=== PATIENT | male | born 1995 | race Caucasian/White ===

== ENCOUNTER 2018-09-13 00:14 | Emergency (ER) | payer BC, OTHER ==
[2018-09-13 00:59] VITALS: BP 136/84; PULSE 118; TEMP 98.3; BMI 25.4
--- NOTE | 2018-09-13 03:02 | PDOC ---
Attending Attestation - Resident Resident Name: Theresa Lawson - ED Attending Attestation I have performed the following: I have examined & evaluated the patient, The case was reviewed & discussed with the resident, I agree w/resident's findings & plan - HPI HPI: 09/13/18 03:53 23-year-old male with palpitations after staying up all night and playing on the computer - Physicial Exam PE: 09/13/18 03:55 agree with resident exam - Medical Decision Making 09/13/18 03:56 23-year-old male with palpitations and anxiety Plan for labs EKG shows a sinus tachycardia with no acute ST elevations Patient will likely be discharged home
[2018-09-13 04:30] LABS: BASO % 0.4 % (0-2.0); EOS % 0.1 % (0-4.5); HEMATOCRIT 43.6 % (35.4-49); HEMOGLOBIN 14.7 GM/dL (11.7-16.9); LYMPH % 18.6 % (8-40); MCHC 33.7 g/dl (32.0-35.9); MEAN PLT VOLUME 9.2 fl (7.5-11.1); MONO % 7.4 % (3.8-10.2); NEUT % 73.5 % (42.8-82.8); PLATELET COUNT 189 K/MM3 (134-434); RDW 13.8 % (11.9-15.9); WHITE BLOOD COUNT 10.6 K/mm3 (4.0-10.0)
[2018-09-13 04:54] LABS: ALBUMIN 4.6 g/dl (3.4-5.0); BLOOD UREA NITROGEN 7.7 mg/dL (7-18); CALCIUM 9.2 mg/dL (8.5-10.1); POTASSIUM 3.4 mmol/L (3.5-5.1); TOT PROT 7.9 g/dl (6.4-8.2)
[2018-09-13 05:12] LABS: URINE APPEARANCE CLEAR; URINE BILIRUBIN NEGATIVE (NEGATIVE); URINE COLOR YELLOW; URINE GLUCOSE (UA) NEGATIVE (NEGATIVE); URINE KETONE 1+ (NEGATIVE); URINE LEUK ESTERASE NEGATIVE (NEGATIVE); URINE NITRITE NEGATIVE (NEGATIVE); URINE PROTEIN NEGATIVE (NEGATIVE); URINE UROBILINOGEN 0.2 mg/dL (0.2-1.0)
[2018-09-13 05:28] LABS: COCAINE, UR NEGATIVE ng/ml (CUTOFF=300); METHADONE, UR NEGATIVE ng/ml (CUTOFF=300); OPIATES, URI NEGATIVE ng/ml (CUTOFF=300); PHENCYCLIDINE,URINE NEGATIVE ng/ml (CUTOFF=25); URINE AMPHETAMINES NEGATIVE ng/ml (CUTOFF=500); URINE BARBITURATES NEGATIVE ng/ml (CUTOFF=200); URINE BENZODIAZEPINES NEGATIVE ng/ml (CUTOFF=200)
--- NOTE | 2018-09-13 05:51 | PDOC ---
History of Present Illness - General Chief Complaint: Palpitations Stated Complaint: RAPID HEARTBEAT Time Seen by Provider: 09/13/18 03:02 - History of Present Illness Initial Comments: James Stevens is an otherwise healthy 23yo man who presents with the sensation that his heart is racing. He says that he was up all night last night, and he noticed the feeling around 7:30am. He is generally awake all night playing on the computer, but he was unable to sleep well throughout the day because of the racing heart. He checked his heart rate using his father's BP machine and it was about 115-120. He tried to ignore the feeling, but it continued all day and he was again unable to sleep. He was concerned that something was wrong with his heart, so he presented for evaluation. He denies any caffeine intake, drug use, alcohol use or previous medical problems. There is no known family cardiac history. He denies any recent weight loss, fever, thirst, infectious symptoms, difficulty breathing, chest pain, vomiting, diarrhea or any other recent symptoms. He does report that he only sleeps about 6 hours per night. Past History - Past Medical History Allergies/Adverse Reactions: Allergies Allergy/AdvReac Type Severity Reaction Status Date / Time No Known Allergies Allergy Verified 09/13/18 00:59 COPD: No - Suicide/Smoking/Psychosocial Hx Smoking History: Never smoked Have you smoked in the past 12 months: No Information on smoking cessation initiated: No Hx Alcohol Use: No Drug/Substance Use Hx: No Review of Systems - Review of Systems Comments:: General: No fevers, no chills, no weight or appetite change, no malaise HEENT: No changes in vision, no changes in hearing, no congestion, no sore throat CV: See HPI. No chest pain, no LE edema Pulm: No SOB, no cough, no wheezing GI: No nausea or vomiting, no change in bowel habits, no melena : No frequency, no urgency, no dysuria Musc: No back pain, no joint swelling, no recent injury Skin: No rash, no lesions, no erythema Endo: No excessive thirst, no heat/cold intolerance Heme: No unusual bruising or bleeding, no swollen glands Neuro: No syncope, no numbness/tingling, no focal weakness Vasc: No claudication Psych: No recent change in mood, no SI or HI *Physical Exam - Vital Signs Last Vital Signs Temp Pulse Resp BP Pulse Ox 98.3 F 118 H 18 136/84 99 09/13/18 00:14 09/13/18 00:14 09/13/18 00:14 09/13/18 00:14 09/13/18 00:14 - Physical Exam Comments: General: Comfortable, no acute distress HEENT: PERRL, EOMI, MMM, voice normal Cards: RRR, no murmur appreciated Pulm: Comfortable on room air, clear to auscultation bilaterally Abd: Soft, nontender, nondistended Ext: Atraumatic. No LE edema. ROM intact Vasc: Extremities WWP. Skin: Normal color, no rashes or lesions Neuro: A&Ox3, CN grossly intact, normal speech, motor/sensory grossly intact and symmetric Psych: Mood appropriate to situation ED Treatment Course - LABORATORY CBC & Chemistry Diagram: 09/13/18 04:08 09/13/18 04:08 - ADDITIONAL ORDERS Additional order review: Laboratory Results 09/13/18 09/13/18 09/13/18 05:00 05:00 04:08 Sodium 140 Potassium 3.4 L Chloride 104 Carbon Dioxide 27 Anion Gap 10 BUN 7.7 Creatinine 1.0 Est GFR (CKD-EPI)AfAm 121.55 Est GFR (CKD-EPI)NonAf 104.88 Random Glucose 91 Calcium 9.2 Total Bilirubin 1.0 AST 18 ALT 37 Alkaline Phosphatase 82 Creatine Kinase Troponin I Total Protein 7.9 Albumin 4.6 TSH Urine Color Yellow Urine Appearance Clear Urine pH 6.0 Ur Specific [place] 1.022 Urine Protein Negative Urine Glucose (UA) Negative Urine Ketones 1+ H Urine Blood Negative Urine Nitrite Negative Urine Bilirubin Negative Urine Urobilinogen 0.2 Ur Leukocyte Esterase Negative Opiates Screen Negative Methadone Screen Negative Barbiturate Screen Negative Phencyclidine Screen Negative Ur Amphetamines Screen Negative MDMA (Ecstasy) Screen Negative Benzodiazepines Screen Negative Cocaine Screen Negative U Marijuana (THC) Screen Negative 09/13/18 09/13/18 04:08 04:06 Sodium Potassium Chloride Carbon Dioxide Anion Gap BUN Creatinine Est GFR (CKD-EPI)AfAm Est GFR (CKD-EPI)NonAf Random Glucose Calcium Total Bilirubin AST ALT Alkaline Phosphatase Creatine Kinase 129 Troponin I < 0.02 Total Protein Albumin TSH 1.35 Urine Color Urine Appearance Urine pH Ur Specific [place] Urine Protein Urine Glucose (UA) Urine Ketones Urine Blood Urine Nitrite Urine Bilirubin Urine Urobilinogen Ur Leukocyte Esterase Opiates Screen Methadone Screen Barbiturate Screen Phencyclidine Screen Ur Amphetamines Screen MDMA (Ecstasy) Screen Benzodiazepines Screen Cocaine Screen U Marijuana (THC) Screen 09/13/18 04:08 RBC 4.90 MCV 89.0 MCHC 33.7 RDW 13.8 MPV 9.2 Neutrophils % 73.5 Lymphocytes % 18.6 Monocytes % 7.4 Eosinophils % 0.1 Basophils % 0.4 - RADIOLOGY Radiology Studies Ordered: Category Date Time Status CHEST PA & LAT [RAD] Stat Radiology 09/13/18 03:36 Taken Medical Decision Making - Medical Decision Making 09/13/18 03:45 James Stevens is an otherwise healthy 23yo man who presents with the sensation that his heart is racing since 7:30am. He denies any associated symptoms and also denies any history of cardiac problems, caffeine or drug use, or family history. - HR 90 during evaluation - Benign exam - Suspect tachycardia was due to anxiety regarding initial sensation of tachycardia. - Denies substance use, but will send tox - Evaluate for underlying cardiac pathology, thyroid abnormalities, electrolyte disturbance that could explain tachycardia - CBC, CMP, trop, CXR - EKG completed prior to being seen. HR 101, normal axis, normal intervals, no ST changes. 09/13/18 05:49 - Labs reviewed. No concerning abnormalites - CXR without acute pathology - Updated pt. Feels improved. - HR now 78 - Pt feels comfortable going home. Will give medicine and cardiology follow up Discussed with Dr Mendez. Theresa Lawson PGY2 *DC/Admit/Observation/Transfer Diagnosis at time of Disposition: Palpitations - Discharge Dispostion Disposition: HOME Condition at time of disposition: Stable Decision to Admit order: No - Referrals Referrals: Erick Hua MD [Staff Physician] - [facility] [place] [facility] [place] [Provider Group] - Patient Instructions Printed Discharge Instructions: DI for Tachycardia Additional Instructions: You were seen in the emergency department for a fast heart beat (tachycardia). Your EKG, chest xray, and blood tests were all normal. If you have a similar sensation in the past, try to calm yourself to ensure you do not have anxiety that worsens the sensation. Limit caffeine, alcohol, and any other stimulants. Make sure you are getting enough sleep. It is strongly recommended that you follow up with internal medicine and cardiology. You have been given contact information for Dr Hua (cardiology) and the internal medicine clinic. Make appointments to follow up within the next week. Seek immediate medical care if you have worsening symptoms, you have chest pain , you have difficulty breathing, or you have any other medical emergency. - Post Discharge Activity
--- NOTE | 2018-09-14 10:30 | EKG ---
Test Reason : Blood Pressure : / mmHG Vent. Rate : 101 BPM Atrial Rate : 101 BPM P-R Int : 138 ms QRS Dur : 094 ms QT Int : 344 ms P-R-T Axes : 067 087 038 degrees QTc Int : 446 ms SINUS TACHYCARDIA OTHERWISE NORMAL ECG NO PREVIOUS ECGS AVAILABLE Confirmed by SALLY ARANGO, MAYCO ([id number]) on 09/14/2018 10:29:47 AM Referred By: Confirmed By:MAYCO ZAVALA MD
== END 2018-09-13 06:04 | disposition home or self-care (01) ==
LOC: JER 00:14
DX: R00.2 Palpitations (principal); F41.9 Anxiety disorder, unspecified
CPT/HCPCS: 36415; 71046-TC-FY; 80053; 80307; 81003; 82550; 84443; 84484; 85025; 93005; 93010; 99282-25